=== PATIENT | female | born 1970 | race Caucasian/White ===

== ENCOUNTER → 2018-02-23 08:46 | Outpatient (CLI) | payer OTHER, SELFPAY ==
--- NOTE | 2018-02-23 | DI.RAD.S_ITS ---
PROCEDURE: XR ANKLE LT MIN 3V INDICATIONS: LEFT ANKLE PAIN TECHNIQUE: 3 views of the ankle were acquired. COMPARISON: None. FINDINGS: Bones: No fractures or dislocations. Ankle mortise is normally aligned. No suspicious bony lesions. Prominent plantar and posterior calcaneal spurring. Prominent os peroneum versus ununited navicular Soft tissues: No tibiotalar joint effusion. Achilles tendon appears normal. IMPRESSION: Prominent plantar and posterior calcaneal spurring. No fracture. If the patient's pain or other symptoms persist, consider further evaluation with MRI Dictated by: Jaylon Ansari M.D. on 02/23/2018 at 9:39 Approved by: Jaylon Ansari M.D. on 02/23/2018 at 9:43
== END ==
PROVIDERS: PCP Nurse Practitioner Family; Visit Provider Nurse Practitioner Family
DX: M25.572 Pain in left ankle and joints of left foot (principal); M77.32 Calcaneal spur, left foot
CPT/HCPCS: 73610

== ENCOUNTER 2022-10-05 08:16 | Outpatient (CLI) | payer OTHER, SELFPAY ==
[2022-10-05] VITALS (8 sets, daily range): BP systolic 110–139; BP diastolic 69–86; PULSE 86–94; RESP 12–22; TEMP 36.4; O2SAT 94–100
--- NOTE | 2022-10-05 08:17 | DI.RAD.S_ITS ---
PROCEDURE: PAIN C/T INTERLAMINAR INJECT INDICATIONS: spinal stenosis COMPARISON: None. FINDINGS: Fluoroscopic spot filming was performed to verify placement of spinal needles at the C7-T1 level(s), as labeled on the films. Appropriate location(s) of the needle tip(s) was confirmed by injection of iodinated contrast. IMPRESSION: Fluoro guidance was provided intraoperatively for C7-T1 intralaminar epidural steroid injection performed by the ordering physician. Dictated by: Reno Knott M.D. on 10/05/2022 at 10:17 Approved by: Reno Knott M.D. on 10/05/2022 at 10:18
[2022-10-05] MEDS: MIDAZOLAM 2 MG/2 ML VIAL 1 MG IV (08:50)
[2022-10-05] MEDS: DEXAMETHASONE 10 MG/ML VIAL INJ (08:52)
[2022-10-05] MEDS: IOPAMIDOL 15 ML VIAL 3 ML INJ (08:52)
--- NOTE | 2022-10-05 12:37 | P.PCN_ITS ---
Date/Time/Diagnoses Date of procedure: 10/05/22 Time of procedure: 08:30 Procedure Notes Physician: Bhavik Savage Total Fluoroscopy time (seconds): 17 Total sedation minutes: 10 Procedure in detail & Post-procedure care: C7-T1 Interlaminar Epidural Steroid Injection Indications: Deysi is presenting for treatment of cervical radiculopathy with neck and arm pain. Preoperative diagnosis: Cervical radiculopathy Postoperative diagnosis: Same Focused Examination: Ax3 Mood and affect are normal Vital Signs: VSS ASA: 2 Consent: Following review of allergies and potential side effects/complications, including, but not necessarily limited to, infection, allergic reaction, local tissue breakdown, stroke, temporary or permanent nerve injury, paralysis, and possible , the patient indicated that they understood and agreed to proceed.? An informed consent document was signed by the patient, witnessed by a nurse and placed in the patient's chart.? Additionally, other treatment options including medications and physical therapy were reviewed with the patient. All questions were answered. Site was then marked. Anesthesia: After review of previous anesthetic history and IV conscious sedation, the patient was deemed safe to proceed with today's procedure with IV conscious sedation. IV sedation was accomplished with midazolam 1 mg administered by the RN after physician order. Sedation was titrated to patient comfort during the course of the procedure. Patient remained responsive to all verbal commands. Position: Prone Monitoring: NIBP, Pulse oximetry, 3 lead EKG Needle used: 18 G 3.5? Tuohy Contrast: Isovue 300-M 2 mL Injectate: Dexamethasone 10 mg followed by Normal Saline 2 mL Technique: The skin was prepped with chloraprep and then draped in a sterile fashion. Time out was performed as per protocol. Oxygen applied via NC. Skin and subcutaneous structures of the needle entry site was then infiltrated with 3 mL of lidocaine 1%. Under AP, lateral and contralateral oblique fluoroscopic control, the Tuohy needle was guided into the C7-T1 epidural space. The space was accessed with loss of resistance technique. Isovue 300-M was then injected and the spread was consistent with the epidural space. There was no evidence for intravascular or intrathecal uptake. After negative aspiration, the above- mentioned injectate was then slowly administered and the needle withdrawn. The patient expressed no unusual discomfort or paresthesias during the injection. Band-Aids applied to injection sites. EBL: less than 1 ml Complications: None Post Procedure: Patient was taken to the recovery and monitored. The patient was provided a Pain Log to continue to record the patient's response to the target- specific procedure prior to the patient's follow-up visit with the referring physician. Patient was stable upon discharge. Detailed post procedure instructions were provided. Patient was asked to call in the event of worsening pain, fever, weakness, numbness or bladder or bowel incontinence.
== END 2022-10-05 08:22 | disposition home or self-care (01) ==
LOC: RAD 08:17
PROVIDERS: PCP Internal Medicine; Referring Provider Anesthesiology; Visit Provider Anesthesiology
DX: M54.12 Radiculopathy, cervical region (principal)
CPT/HCPCS: 62321; 82962; 99152; J1100; J2250

== ENCOUNTER 2022-12-14 08:51 | Outpatient (CLI) | payer OTHER, SELFPAY ==
[2022-12-14] VITALS (8 sets, daily range): BP systolic 106–147; BP diastolic 63–73; PULSE 88–105; RESP 14–19; TEMP 37; O2SAT 95–98
--- NOTE | 2022-12-14 08:52 | DI.RAD.S_ITS ---
PROCEDURE: PAIN C/T FACET INJ/BLK 1ST L INDICATIONS: Cervical Spondylosis COMPARISON: None. FINDINGS: Fluoroscopic spot filming was performed to verify placement of spinal needles at the medial branch locations at the left C4, C5, and C6 level(s), as labeled on the films. IMPRESSION: Fluoroscopic guided is provided during multilevel cervical medial branch block procedure. Dictated by: Lele Pineda M.D. on 12/14/2022 at 13:16 Approved by: Lele Pineda M.D. on 12/14/2022 at 13:19
[2022-12-14] MEDS: MIDAZOLAM 2 MG/2 ML VIAL 1 MG IV ×2 (09:26→09:34)
[2022-12-14] MEDS: iopamidoL 15 ML VIAL 3 ML INJ (09:28)
[2022-12-14] MEDS: BUPIVACAINE 0.5% (PF) 10 ML VIAL 5 ML INJ (09:28)
--- NOTE | 2022-12-14 10:59 | P.PCN_ITS ---
Date/Time/Diagnoses Date of procedure: 12/14/22 Time of procedure: 09:30 Procedure Notes Physician: Bhavik Savage Total Fluoroscopy time (seconds): 31 Total sedation minutes: 17 Procedure in detail & Post-procedure care: Left C4, 5, 6 Cervical Medial Branch Blocks Indications: Deysi is presenting for treatment of cervical spondylosis with cervical pain. Preoperative diagnosis: Cervical spondylosis Postoperative diagnosis: Same Pre-procedure History: F Patient demonstrates today moderate to severe non- radicular neck pain without neurologic deficit aggravated by hyperextension yes Neck pain greater than arm pain? yes Patient today has tenderness over the suspected joint(s) yes History of post-traumatic injury? no Hypertrophic arthropathy yes Neck pain associated with suspected motion segment instability, hypermobility or pseudoarthrosis no Pre-testing pain score (VAS): 8/10 Focused Examination: Ax3 Mood and affect are normal Vital Signs: VSS ASA: 2 Consent: Following review of allergies and potential side effects/complications, including, but not necessarily limited to, infection, allergic reaction, local tissue breakdown, stroke, temporary or permanent nerve injury, paralysis, and possible , the patient indicated that they understood and agreed to proceed.? An informed consent document was signed by the patient, witnessed by a nurse and placed in the patient's chart.? Additionally, other treatment options including medications and physical therapy were reviewed with the patient. All questions were answered. Site was then marked. Anesthesia: After review of previous anesthetic history and IV conscious sedation, the patient was deemed safe to proceed with today's procedure with IV conscious sedation. IV sedation was accomplished with midazolam 2 mg administered by the RN after order by Dr. Savage. Sedation was titrated to patient comfort during the course of the procedure. Patient remained responsive to all verbal commands. Position: Prone Monitoring: NIBP, Pulse oximetry, 3 lead EKG Needle used: 22G 3.5 inch spinal needle Contrast: Isovue 300M Injectate: 0.5% bupivacaine, 0.5 mL per site Procedure: The patient was brought into the procedure room and positioned into the prone position. Skin was prepped with a Chloraprep solution, allowed to air dry, and then draped in sterile fashion.? The left C4-5 and C5-6 facet joints were visually identified with fluoroscopy. Lidocaine 1% was used to anesthetize the skin over each target destination with a 25ga needle. A 22 ga, 3.5 inch spinal needle was advanced to the location of the medial branch at the waist of the articular pillar using intermittent fluoroscopy in the AP view. The most superior spinal needle was noted to be advancing a bit too superiorly. This needle was removed, a new position was located with fluoroscopy and the skin was numbed at this site. The spinal needle was then advanced into proper position. Isovue 300M contrast 0.2ml was injected at each level outlining the borders for each level in the AP/lateral views and confirmed in the foraminal view. There was no evidence of vascular or intrathecal uptake. The above injectate was slowly injected at each target destination. At the end of the procedure the needles were withdrawn and Band-Aids were applied for a dressing. Post Procedure: Patient was taken to the recovery and monitored. The patient was provided a Pain Log to continue to record the patient's response to the target- specific procedure prior to the patient's follow-up visit with the referring physician. Patient was stable upon discharge. Detailed post procedure instructions were provided. Patient was asked to call in the event of worsening pain, fever, weakness, numbness or bladder or bowel incontinence. Postoperatively, the patient demonstrates the following changes with hyperextension and with tenderness over the suspected joint(s). Provacative testing using the facet loading test Right side Left side Directly before the block ?VAS (0-10) = 8/10 VAS (0-10) = 8/10 5 minutes after the block VAS (0-10) = 4/10 VAS (0-10) = 4/10 Percentage relief obtained with this diagnostic block 50 % 50 % Any improved physical functioning directly after the blocks? Range of motion Based on the medial branches blocked today, if the patient meets insurance criteria for radiofrequency, the treatment should result in the denervation of the left C4-5 and C5-6 facet joint nerves. We would expect to denervate a total of 2 facets during the radiofrequency ablation. Complications: None
== END 2022-12-14 10:08 | disposition home or self-care (01) ==
LOC: RAD 08:51
PROVIDERS: PCP Internal Medicine; Referring Provider Anesthesiology; Visit Provider Anesthesiology
DX: M47.812 Spondylosis without myelopathy or radiculopathy, cervical region (principal)
CPT/HCPCS: 64490; 64491; 99152; J2250

== ENCOUNTER → 2024-10-21 07:39 | Outpatient (CLI) | payer OTHER, SELFPAY ==
--- NOTE | 2024-10-21 17:13 | DI.NM.S_ITS ---
DATE OF SERVICE: 10/21/2024 EXERCISE PERFUSION STUDY INDICATIONS: Syncope, underlying diabetes. RADIOPHARMACEUTICAL: 24.8 mCi technetium-99m Myoview IV was injected at stress and 12.1 millicuries technetium-99m Myoview IV was injected at rest. CARDIAC STRESS: The patient underwent exercise perfusion study under the supervision of an attending staff. She walked on Stephan protocol for 6 minutes and 20 seconds, achieved 7 METS of workload, Maximum heart rate 154, which was 93% of target heart rate and normal blood pressure response. Peak blood pressure 155/68 and resting blood pressure 102/70 mmHg. Baseline rhythm sinus. During stress, no convincing ischemic changes seen. No significant arrhythmias. No chest pain. The patient had some shortness of breath and dizziness during exercise. Normal recovery. RAW DATA: Breast shadow seen. GATED STUDY: Resting LV ejection fraction 69% and stress LV ejection fraction 80% without any obvious wall motion abnormalities. Resting end- diastolic volume 71 mL. TID ratio 0.94, which is within normal limits. MYOCARDIAL PERFUSION SCAN: Stress supine, resting supine and stress prone images were compared to each other. Stress supine images and resting supine images revealed minimally decreased perfusion of apex, which got improved during stress prone images, suggestive of breast tissue attenuation artifact. No convincing ischemia or infarction. CONCLUSION: I will call this study a normal myocardial perfusion study with evidence of breast tissue attenuation artifact, which improved during stress prone images. Preserved LV function. Diminished exercise tolerance. Normal hemodynamic response. No chest pain. Overall, low- risk exercise perfusion study. Deysi Horowitz - JESE/carli/ANAT doc#: [id number]/job#: [id number] dd: 10/21/2024 16:49:00 dt: 10/21/2024 16:57:00 DICTATING MD/COPIES TO: Morris Barragan MD COPIES MNE: GARCÍA;
== END ==
LOC: NUCM 07:40
PROVIDERS: Referring Provider Internal Medicine Cardiovascular Disease; Visit Provider Internal Medicine Cardiovascular Disease
DX: I95.1 Orthostatic hypotension (principal); R55 Syncope and collapse
CPT/HCPCS: 78452; 93017; A9502